=== PATIENT | male | born 1965 ===

== ENCOUNTER 2017-09-02 08:19 | Outpatient (CLI) | payer BC ==
--- NOTE | 2017-09-02 11:32 | XRay Report ---
XRAY RIGHT HAND THREE VIEWS: 09/02/17 08:19:00 CLINICAL: Right hand pain. FINDINGS: No fracture or dislocation. Mild osteoarthritis at the first MCP joint and the IP joint of the thumb. No erosions. The rest of the joints are normal. The carpal bones are intact. The distal radius and ulnar normal. Mild soft tissue swelling at the PIP joints of digits 2 through 5. IMPRESSION: Mild osteoarthritis.
== END 2017-09-02 08:20 | disposition home or self-care (01) ==
LOC: SPVIMAG 08:19
PROVIDERS: ATTEND Orthopaedic Surgery
DX: M19.041 Primary osteoarthritis, right hand (principal); M18.9 Osteoarthritis of first carpometacarpal joint, unspecified